=== PATIENT | female | born 1990 | race Caucasian/White ===

== ENCOUNTER 2017-07-16 08:44 | Emergency (ER) | payer SELFPAY ==
--- NOTE | 2017-07-16 08:55 | EDPHY ---
HPI/HX/ROS/PE/MDM Narrative: CHIEF COMPLAINT: Bellybutton pain HPI: The patient is a 27 y/o female complaining of pain behind her bellybutton for the past 3 days. Several months ago she was seen for similar symptoms at [facility] and was diagnosed with a hernia. She denies following up with a general surgeon. Today she also believes her bellybutton feels hard. Denies fever, vomiting, bowel changes or other pertinent symptoms. REVIEW OF SYSTEMS: Aside from elements discussed in the HPI, a comprehensive 10-point review of systems was reviewed and is negative. PMH: Hernia several months ago SOCIAL HISTORY: Lives in [place], single, works for [employer] PHYSICAL EXAM: General:Patient is alert, in no acute distress. ENT:Eyes are normal to inspection. ENT inspection normal. Neck: Normal inspection. Full range of motion. Respiratory:No respiratory distress. Breath sounds normal bilaterally. Cardiovascular: Regular rate and rhythm. Strong peripheral pulses. Normal cap refill. Abdomen:The abdomen is nontender to palpation. There are no peritoneal signs. There are normal bowel sounds. Back: Normal to inspection. No tenderness to palpation. Skin: Normal color. No rash. Warm and dry. Extremities: Normal appearance. Full range of motion. Neuro: Oriented x3. Normal motor function. Normal sensory function. Portions of this note were transcribed by an ED scribe. I personally performed the history, physical exam, and medical decision making; and confirm the accuracy of the information in the transcribed note. ED Course: The patient is a 27 y/o female presenting with pain behind her bellybutton. Her physical exam is normal. 1055: Spoke with Dr. Pimentel, radiologist, patient is positive for an umbilical hernia. 1100: Reassessed patient and discussed imaging findings. She will be referred to Dr. Monaco, general surgeon, for her umbilical hernia. Return precautions provided; patient is comfortable with this plan. MDM: This is a young healthy female who presents with an umbillical hernia. I see no signs of incarceration or strangulation on exam. CT confirms diagnosis, and thankfully there is no bowel present in hernia. The patient requires surgical follow-up but I do not believe she requires emergent surgery. We discussed strict return precautions and possibility of incarceration. - Data Points Imaging Results: Imaging Impressions Abdomen/Pelvis CT 07/16/17 08:58 Impression: 1. Small umbilical hernia, containing only fat, has mild inflammation. 2. Normal appendix and bowel. 3. Well-positioned intrauterine device. Findings discussed with Emergency Department physician, Alvin Arthur M.D. on July 16, 2017 at 10:57 a.m. Attention: This CT examination is specifically designed to evaluate patients who are clinically suspected of having acute obstructive uropathy. This examination does not use radiographic contrast, and as such, provides only a limited evaluation of the abdomen, pelvis and retroperitoneum. If there is further clinical suspicion for pathological conditions other than obstructive uropathy, a complete CT evaluation of the abdomen and pelvis utilizing intravenous, oral, and rectal contrast should be considered. Imaging: Discussed imaging studies w/ access developer Radiologist, I viewed and interpreted images myself General Time Seen by Provider: 07/16/17 08:53 Initial Vital Signs: Initial Vital Signs Temperature (C) 36.8 C 07/16/17 08:48 Heart Rate 71 07/16/17 08:48 Respiratory Rate 18 07/16/17 08:48 Blood Pressure 128/80 H 07/16/17 08:48 O2 Sat (%) 96 07/16/17 08:48 O2 Delivery Mode Room Air Allergies/Adverse Reactions: No Known Allergies Allergy (Unverified 07/16/17 08:48) Home Medications: Medication Instructions Recorded NK [No Known Home Meds] 07/16/17 Departure - Departure Disposition: Home, Routine, Self-Care Clinical Impression: Umbilical hernia Qualifiers: Obstruction and gangrene presence: without obstruction or gangrene Qualified Code(s): K42.9 - Umbilical hernia without obstruction or gangrene Condition: Good Instructions: Umbilical Hernia (ED) Additional Instructions: Followup with a general surgeon, you have been referred to Dr. Monaco. If you are unable to push your hernia back in call 911. Return to the ED if you experience diarrhea, vomiting, fever or other worsening of your symptoms. Referrals: RONEY DAVID [Other] - As per Instructions Pilar Monaco MD [Medical Doctor] - As per Instructions Report Scribed for: Alvin Arthur Report Scribed by: Nayeli Sweeney Date of Report: 07/16/17 Time of Report: 08:54
[2017-07-16 11:16] VITALS: BP 119/64; PULSE 69; RESP 16; TEMP 98.6; O2SAT 97
== END 2017-07-16 11:15 | disposition home or self-care (01) ==
DX: K42.9 Umbilical hernia without obstruction or gangrene (principal)